=== PATIENT | male | born 1980 | race Caucasian/White ===

== ENCOUNTER 2016-07-21 22:39 | Emergency (ER) | payer OTHER | END 2016-07-22 04:30 | disposition home or self-care (01) | LOC: ER1 22:39 | DX: S89.92XA Unspecified injury of left lower leg, initial encounter (principal); I10 Essential (primary) hypertension; F17.210 Nicotine dependence, cigarettes, uncomplicated; V49.9XXA Car occupant (driver) (passenger) injured in unspecified traffic accident, initial encounter; Z79.899 Other long term (current) drug therapy | CPT/HCPCS: 73564; 99284 ==